=== PATIENT | male | born 1965 | race Caucasian/White ===

== ENCOUNTER 2018-02-13 10:14 | Emergency (ER) | payer OTHER ==
[~2018-02-13] VITALS: Ht 172.7 cm; Wt 102.1 kg
[~2018-02-13 10:14] MED LIST: NORFLEX100 MG PO; TORADOL10 MG PO; TRAMADOL HCL-AP1 TAB PO
== END 2018-02-13 13:48 | disposition home or self-care (01) ==
LOC: ER 10:14
DX: K60.1 Chronic anal fissure (principal)

== ENCOUNTER → 2018-03-15 06:00 | Outpatient (CLI) | payer OTHER | END | disposition home or self-care (01) | LOC: LAB 06:00 → AMB-ENDOS 03-19 06:39 → EDSTATUS 03-19 16:56 | DX: K64.2 Third degree hemorrhoids (principal); K92.1 Melena; K64.4 Residual hemorrhoidal skin tags ==

== ENCOUNTER 2018-03-19 04:46 | Inpatient (IN) | payer OTHER ==
[~2018-03-19] VITALS: Ht 213.4 cm; Wt 5.0 kg
== END 2018-03-19 17:02 | disposition home or self-care (01) | DRG 394 ==
LOC: ER 04:46 → SURG 07:43
PROC: 0W3P8ZZ Control Bleeding in Gastrointestinal Tract, Via Natural or Artificial Opening Endoscopic (ICD-10-PCS; principal; 2018-03-19)
DX: K64.2 Third degree hemorrhoids (principal); K62.5 Hemorrhage of anus and rectum

== ENCOUNTER 2019-02-08 12:17 | Outpatient (CLI) | payer OTHER | END 2019-02-08 12:19 | disposition home or self-care (01) | LOC: RAD 12:17 | DX: M12.821 Other specific arthropathies, not elsewhere classified, right elbow (principal) ==

== ENCOUNTER → 2019-02-21 | Emergency (ER) | payer OTHER ==
[~2019-02-21] VITALS: Ht 170.2 cm; Wt 95.3 kg
== END | disposition home or self-care (01) ==
LOC: ER 16:00
DX: K64.4 Residual hemorrhoidal skin tags (principal)

== ENCOUNTER 2019-05-25 05:00 | Day surgery (SDC) | payer OTHER | END 2019-05-25 14:10 | disposition home or self-care (01) | LOC: CIR.AMB 05:00 | DX: D12.9 Benign neoplasm of anus and anal canal (principal); K64.8 Other hemorrhoids; K60.1 Chronic anal fissure ==

== ENCOUNTER 2020-09-26 09:02 | Outpatient (CLI) | payer OTHER | END 2020-09-26 13:46 | disposition home or self-care (01) | LOC: LAB 09:02 | PROVIDERS: ATTEND Internal Medicine Cardiovascular Disease | DX: I10 Essential (primary) hypertension (principal); E11.9 Type 2 diabetes mellitus without complications; E03.9 Hypothyroidism, unspecified; E55.9 Vitamin D deficiency, unspecified ==

== ENCOUNTER → 2020-09-26 | Outpatient (CLI) | payer OTHER | END | disposition home or self-care (01) | LOC: MAMO-SONO 09:15 → SONOGRAMA 09:24 | PROVIDERS: ATTEND Internal Medicine Cardiovascular Disease | DX: M12.9 Arthropathy, unspecified (principal) ==